=== PATIENT | male | born 1960 | race Caucasian/White ===

== ENCOUNTER 2019-11-15 10:08 | Outpatient (CLI) | payer BC, OTHER ==
[2019-11-16 13:25] LABS: SARS-CoV-2 MS2 Positive; SARS-CoV-2 N Gene Negative; SARS-CoV-2 S Gene Negative; SARS-CoV-2 orf1ab Negative
== END 2019-11-15 10:09 | disposition home or self-care (01) ==
LOC: LABSCS 10:08
PROVIDERS: ATTEND Family Medicine
DX: Z01.812 Encounter for preprocedural laboratory examination (principal); Z11.59 Encounter for screening for other viral diseases; R13.10 Dysphagia, unspecified
CPT/HCPCS: 36415; 80053; 80061; 81001; 83036; 84443; 85025; 87635; G0103; U0003